=== PATIENT | female | born 1995 | race Two or more races ===

== ENCOUNTER 2021-11-13 12:06 | Emergency (ER) | payer MEDICAID, OTHER ==
[~2021-11-13] VITALS: Ht 170.2 cm; Wt 100.2 kg
[2021-11-13 15:50] VITALS: BP 138/84
== END 2021-11-13 16:38 | disposition home or self-care (01) ==
LOC: ER 12:06
DX: S63.502A Unspecified sprain of left wrist, initial encounter (principal); S63.92XA Sprain of unspecified part of left wrist and hand, initial encounter; V00.128A Other non-in-line roller-skating accident, initial encounter; Y93.89 Activity, other specified; Y92.89 Other specified places as the place of occurrence of the external cause; Y99.8 Other external cause status
CPT/HCPCS: 29125; 73110; 73130

== ENCOUNTER 2022-10-17 04:57 | Emergency (ER) | payer MEDICAID, OTHER ==
[~2022-10-17] VITALS: Ht 162.6 cm; Wt 81.8 kg
[2022-10-17] MEDS ORDERED: ACETAMINOPHEN 500 MG TAB PO ONE (07:15)
[2022-10-17 07:23] VITALS: BP 135/71
[2022-10-17] MEDS ORDERED: METH750T22 PO (07:57)
[2022-10-17] MEDS ORDERED: IBUP800T27 PO (07:57)
== END 2022-10-17 08:01 | disposition home or self-care (01) ==
LOC: EDBD 04:57 → ER 04:57 → EDUNIT# 04:57 → ER 08:01
DX: S20.219A Contusion of unspecified front wall of thorax, initial encounter (principal); S50.01XA Contusion of right elbow, initial encounter; S60.052A Contusion of left little finger without damage to nail, initial encounter; V49.49XA Driver injured in collision with other motor vehicles in traffic accident, initial encounter; Y93.89 Activity, other specified; Y92.89 Other specified places as the place of occurrence of the external cause; Y99.8 Other external cause status; Z88.6 Allergy status to analgesic agent
CPT/HCPCS: 71046; 73130